=== PATIENT | male | born 2000 | race Caucasian/White ===

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

== ENCOUNTER 2023-05-28 22:12 | Emergency (ER) | payer BC ==
[~2023-05-28] VITALS: Ht 182.9 cm; Wt 90.7 kg
[~2023-05-28 22:12] MED LIST changes: +Augmentin 875-1 EACH PO; +Hydrocodone-Ap1 EA26 PO
[2023-05-28 22:18] VITALS: BP 179/88
[2023-05-28 23:19] LABS: Influenza A, PCR NEGATIVE (NEGATIVE); Influenza B, PCR NEGATIVE (NEGATIVE); Resp Syncytial Virus, PCR NEGATIVE (NEGATIVE); SARS-Cov-2 (COVID-19) PCR, MMC NEGATIVE (NEGATIVE)
== END 2023-05-29 00:10 | disposition left against medical advice (07) ==
LOC: ER 22:12
PROVIDERS: Student in an Organized Health Care Education/Training Program
DX: Z53.21 Procedure and treatment not carried out due to patient leaving prior to being seen by health care provider (principal)
CPT/HCPCS: 0241U